=== PATIENT | female | born 1955 | race Caucasian/White ===

== ENCOUNTER 2024-06-07 14:58 | Inpatient (IN) | payer OTHER ==
[2024-06-07 15:47] LABS: Absolute Lymphocytes (CBC) 0.8 K/uL (0.7-4.9); Absolute Monocytes 0.5 K/uL (0.1-1.3); Absolute Neutrophil 7.9 K/uL (1.8-8.0); Basophils % 0.3 % (0-1.3); Hematocrit 35.4 % (36.0-45.0); Hemoglobin 11.3 g/dL (12.0-15.0); Lymphocytes % 8.5 % (15.3-44.8); MCH 25.5 pg (27.0-35.0); MCV 79.5 fL (80-100); MPV 6.6 fL (7.6-11.3); Monocytes % 5.2 % (3.3-12.3); Platelets 249 thou/uL (152-406); RBC Red Blood Cell Count 4.45 M/uL (3.86-4.86); Red Cell Distribution Width 16.6 % (12.1-15.2)
[2024-06-07 16:14] LABS: PT Prothrombin Time 11.2 SECONDS (9.4-12.5)
--- NOTE | 2024-06-07 16:14 | RAD REPORT ---
EXAM DESCRIPTION: RAD - Chest Single View - 06/07/2024 4:06 pm CLINICAL HISTORY: SOB Chest pain. COMPARISON: CHEST PA AND LAT 2 VIEW dated 06/07/2015; CHEST PA AND LAT 2 VIEW dated 10/17/2007 FINDINGS: Portable technique limits examination quality. Mildly prominent interstitial lung markings bilaterally are nonspecific. These may represent mild int erstitial pulmonary edema or interstitial infection/ viral infection. The heart is mildly prominent. Chronic blunting of the left costophrenic sulcus noted.
[2024-06-07 16:21] LABS: Sqamous Epithelial <5 /HPF (None Seen); Urine Bacteria None Seen /HPF (<20); Urine Bilirubin NEGATIVE (Negative); Urine Blood Trace (Negative); Urine Clarity Turbid (Clear); Urine Color Colorless (Yellow); Urine Crystals Unidentified Few /HPF (None Seen); Urine Culture Reflex Order NOT NEEDED; Urine Glucose 3+ (Negative); Urine Ketones NEGATIVE (Negative); Urine Microscopic Reflex YN ORDER UMIC; Urine Mucus Slight /HPF (None Seen); Urine Nitrite NEGATIVE (Negative); Urine Protein NEGATIVE (Negative); Urine RBC <5 /HPF (None Seen); Urine Urobilinogen Normal (Normal)
[2024-06-07 16:39] LABS: ALT/SGPT 29 U/L (13-56); AST/SGOT 17 U/L (15-37); Albumin 2.1 g/dL (3.4-5.0); Albumin/Globulin Ratio 0.5 (1.1-1.8); Alkaline Phosphatase 187 U/L (45-117); Anion Gap 10.2 mEq/L (5.0-15.0); BUN Blood Urea Nitrogen 62 mg/dL (7-18); Bicarbonate 24 mEq/L (21-32); Bilirubin Total 0.3 mg/dL (0.2-1.0); Globulin 4.3 g/dL (2.3-3.5); Glomerular Filtration Rate 27 ml/min (=/>90); Glucose Level 257 mg/dL (74-106); Magnesium 2.5 mg/dL (1.6-2.4); NT PRO-BNP 5532 pg/mL (<125); Potassium 4.2 mEq/L (3.5-5.1); Protein, Total 6.4 g/dL (6.4-8.2); Sodium Level 136 mEq/L (136-145); Troponin High Sensitivity 6.2 pg/mL (<58.9)
[2024-06-07 16:40] LABS: Bilirubin Direct < 0.2 mg/dL (0-0.2); Bilirubin Indirect, Calculated 0.1 mg/dL (0.2-0.8)
--- NOTE | 2024-06-07 18:25 | ER ---
Nurse's Notes [facility] Name: Mel Ly Age: 69 yrs Sex: Female : 1955 Arrival Date: 06/07/2024 Time: 14:58 Bed 16 Private MD: Diagnosis: Unspecified combined systolic (congestive) and diastolic (congestive) heart failure;Dyspnea;Acute kidney failure, unspecified Presentation: 06/07 15:12 Chief complaint: Patient states: Diagnosed with a UTI on Sunday and is taking Macrobid. cm10 Pt states that she started having pain to bilateral knees. Coronavirus screen: Client denies travel out of the [place] in the last 14 days. Ebola Screen: Patient denies travel to an Ebola-affected area in the 21 days before illness onset. No symptoms or risks identified at this time. Initial Sepsis Screen: Does the patient meet any 2 criteria? No. Patient's initial sepsis screen is negative. Does the patient have a suspected source of infection? No. Patient's initial sepsis screen is negative. Risk Assessment: Do you want to hurt yourself or someone else? Patient reports no desire to harm self or others. Onset of symptoms was June 07, 2024. 15:12 Method Of Arrival: EMS: [facility] 15:12 Acuity: BRITTANIE 3 cm10 Triage Assessment: 15:15 General: Appears in no apparent distress. uncomfortable, Behavior is calm, cooperative. cm10 Pain: Complains of pain in right leg and left leg Pain currently is 3 out of 10 on a pain scale. Neuro: No deficits noted. Level of Consciousness is awake, alert, obeys commands, Oriented to person, place, time, situation, Appropriate for age. Cardiovascular: No deficits noted. Patient's skin is warm and dry. Respiratory: No deficits noted. Airway is patent Respiratory effort is even, unlabored, Respiratory pattern is regular, symmetrical. Musculoskeletal: No deficits noted. Range of motion: intact in all extremities. Historical: - Allergies: 15:13 No Known Allergies; cm10 - Home Meds: 15:13 rosuvastatin oral [Active]; Lisinopril Oral [Active]; sertraline oral [Active]; cm10 - PMHx: 15:13 Hypertensive disorder; Hypercholesterolemia; cm10 - PSHx: 15:13 Total abdominal hysterectomy; Lung Resection; cm10 - Immunization history:: Adult Immunizations up to date. - Infectious Disease History:: Denies. - Social history:: Smoking status: Patient/guardian denies using tobacco, the patient reports quitting approximately 12 years ago. Screenin:[facility] ED Fall Risk Assessment (Adult) History of falling in the last 3 months, cm10 including since admission No falls in past 3 months (0 pts) Confusion or Disorientation No (0 pts) Intoxicated or Sedated No (0 pts) Impaired Gait No (0 pts) Mobility Assist Device Used No (0 pt) Altered Elimination No (0 pt) Score/Fall Risk Level 0 - 2 = Low Risk Oriented to surroundings, Maintained a safe environment, Hourly rounding (assess needs \T\ fall precautionary measures) done. Abuse screen: Denies threats or abuse. Denies injuries from another. Nutritional screening: No deficits noted. Tuberculosis screening: No symptoms or risk factors identified. Assessment: 15:15 General: Appears in no apparent distress. comfortable, Behavior is calm, cooperative. cm10 Neuro: No deficits noted. Level of Consciousness is awake, alert, obeys commands, Oriented to person, place, time, situation, Appropriate for age. Cardiovascular: Patient's skin is warm and dry. Respiratory: No deficits noted. Airway is patent Respiratory effort is even, unlabored, Respiratory pattern is regular, symmetrical. Derm: No deficits noted. Skin is healthy with good turgor. 18:56 Reassessment: Patient appears in no apparent distress at this time. No changes from cm10 previously documented assessment. Patient and/or family updated on plan of care and expected duration. Pain level reassessed. Patient is alert, oriented x 3, equal unlabored respirations, skin warm/dry/pink. Vital Signs: 15:00 BP 110 / 51; Pulse 64; Resp 16; Pulse Ox 100% ; cm10 15:12 BP 110 / 51; Pulse 62; Resp 15; Temp 97.1; Pulse Ox 100% on R/A; Weight 95.25 kg; cm10 Height 5 ft. 7 in. ; Pain 3/10; 15:30 BP 106 / 47; Pulse 61; Resp 21; Pulse Ox 100% on R/A; cm10 16:00 BP 115 / 43; Pulse 63; Resp 22; Pulse Ox 100% on R/A; cm10 16:30 BP 105 / 47; Pulse 60; Resp 16; Pulse Ox 100% on R/A; cm10 17:00 BP 113 / 44; Pulse 62; Resp 16; Pulse Ox 100% on R/A; cm10 17:30 BP 108 / 48; Pulse 67; Resp 16; Pulse Ox 100% ; cm10 18:00 BP 112 / 41; Pulse 67; Resp 16; Pulse Ox 100% on R/A; cm10 18:30 BP 109 / 47; Pulse 66; Resp 16; Pulse Ox 100% on R/A; cm10 15:12 Body Mass Index 32.89 (95.25 kg, 170.18 cm) cm10 15:12 Pain Scale: Adult cm10 ED Course: 15:01 Patient arrived in ED. cm10 15:02 Cherry Pickett, RN is Primary Nurse. cm10 15:03 Craig Murray PA is PHCP. cp 15:03 Craig Dan MD is Attending Physician. cp 15:13 Triage completed. cm10 15:15 Arm band placed on Patient placed in an exam room, on a stretcher. cm10 15:15 Client placed on continuous cardiac and pulse oximetry monitoring. NIBP monitoring cm10 applied. dietetic tech on. 15:40 Basic Metabolic Panel Sent. cm10 15:40 CBC with Diff Sent. cm10 15:40 LFT's Sent. cm10 15:40 Magnesium Sent. cm10 15:40 NT PRO-BNP Sent. cm10 15:40 PT-INR Sent. cm10 15:40 Troponin HS Sent. cm10 15:40 Urinalysis w/ reflexes Sent. cm10 15:41 Initial lab(s) drawn, by al, sent to lab. Urine collected: clean catch specimen, EKG cm10 done, by ED staff, reviewed by Craig SUE. Inserted saline lock: 20 gauge in left antecubital area, using aseptic technique. Blood collected. Flushed with 10 mL NS. 16:08 XRAY Chest (1 view) In Process Unspecified. EDMS 16:34 Patient has correct armband on for positive identification. Bed in low position. Call cm10 light in reach. Side rails up X2. Provided Education on: ER process and procedures.. 17:20 Warm blanket given. Assisted with bedpan. Linen changed. cm10 18:24 Dom Smith MD is Hospitalizing Provider. cp 18:52 Report faxed to 2nd floor at 1850. Called X2 to confirm received, no answer. cm10 19:39 No provider procedures requiring assistance completed. Patient admitted, IV remains in al5 place. Administered Medications: 19:35 Drug: Furosemide IVP 20 mg IVP once; give over 2 minutes Route: IVP; Site: left al5 antecubital; 19:35 Follow up: Response: No adverse reaction al5 Medication: 16:34 VIS not applicable for this client. cm10 Outcome: 18:25 Decision to Hospitalize by Provider. cp 19:39 Admitted to Med/surg accompanied by tech, via stretcher, room 210, with chart, al5 19:39 Condition: good 19:39 Instructed on the need for admit, 19:40 Patient left the ED. al5 Signatures: Dispatcher [employer] EDMS Craig Murray PA PA cp Martinez, Clarissa RN RN cm10 Vanda Jara RN RN al5
--- NOTE | 2024-06-07 18:25 | EDPHYS ---
Physician Documentation [facility] Name: Mel Ly Age: 69 yrs Sex: Female : 1955 Arrival Date: 06/07/2024 Time: 14:58 Bed 16 Private MD: ED Physician Craig Dan HPI: 06/07 15:10 This 69 yrs old Female presents to ER via EMS with complaints of Pain All Over. cp 15:10 The patient has shortness of breath with light activity. cp 15:10 Onset: The symptoms/episode began/occurred gradually. Associated signs and symptoms: cp Pertinent positives: bilateral knee pain, swelling of legs, Pertinent negatives: chest pain, productive cough, diaphoresis, fever, vomiting. Severity of symptoms: in the emergency department the symptoms are unchanged despite home interventions. Historical: - Allergies: 15:13 No Known Allergies; cm10 - Home Meds: 15:13 rosuvastatin oral [Active]; Lisinopril Oral [Active]; sertraline oral [Active]; cm10 - PMHx: 15:13 Hypertensive disorder; Hypercholesterolemia; cm10 - PSHx: 15:13 Total abdominal hysterectomy; Lung Resection; cm10 - Immunization history:: Adult Immunizations up to date. - Infectious Disease History:: Denies. - Social history:: Smoking status: Patient/guardian denies using tobacco, the patient reports quitting approximately 12 years ago. ROS: 15:15 Cardiovascular: Positive for edema, Negative for chest pain, palpitations, cp 15:15 Eyes: Negative for injury, pain, redness, and discharge, cp 15:15 Constitutional: Negative for body aches, chills, fever, poor PO intake, 15:15 ENT: Negative for drainage from ear(s), ear pain, sore throat, difficulty swallowing, difficulty handling secretions, 15:15 Respiratory: Positive for shortness of breath, on exertion. 15:15 Abdomen/GI: Negative for abdominal pain, vomiting, diarrhea, constipation, 15:15 Neuro: Negative for altered mental status, headache, 15:15 All other systems are negative, Exam: 15:20 Constitutional: The patient appears in no acute distress, alert, awake, cp non-diaphoretic, non-toxic, well developed, well nourished, 15:20 Head/Face: Normocephalic, atraumatic. cp 15:20 Eyes: Periorbital structures: appear normal, Conjunctiva: normal, no exudate, no injection, Sclera: no appreciated abnormality, Lids and lashes: appear normal, bilaterally, 15:20 ENT: External ear(s): are unremarkable, Nose: is normal, Mouth: Lips: moist, Oral mucosa: pink and intact, moist, Posterior pharynx: is normal, airway is patent, no erythema, no exudate, 15:20 Neck: ROM/movement: is normal, is supple, without pain, no range of motions limitations, 15:20 Chest/axilla: Inspection: normal, 15:20 Cardiovascular: Rate: normal, Rhythm: regular, Edema: ankle edema, that is mild, JVD: is not appreciated, 15:20 Respiratory: the patient does not display signs of respiratory distress, Respirations: labored breathing, intercostal retractions, are absent, Breath sounds: decreased breath sounds, that are mild, throughout, stridor, is not appreciated, wheezing: is not appreciated, 15:20 Abdomen/GI: Inspection: abdomen appears normal, Palpation: abdomen is soft and non-tender, in all quadrants, 15:20 Skin: no rash present. 15:20 Neuro: Orientation: to person, place \T\ time. Mentation: is normal, Motor: moves all fours, strength is normal, Sensation: is normal, 15:33 ECG was reviewed by the Attending Physician. cp Vital Signs: 15:00 BP 110 / 51; Pulse 64; Resp 16; Pulse Ox 100% ; cm10 15:12 BP 110 / 51; Pulse 62; Resp 15; Temp 97.1; Pulse Ox 100% on R/A; Weight 95.25 kg; cm10 Height 5 ft. 7 in. ; Pain 3/10; 15:30 BP 106 / 47; Pulse 61; Resp 21; Pulse Ox 100% on R/A; cm10 16:00 BP 115 / 43; Pulse 63; Resp 22; Pulse Ox 100% on R/A; cm10 16:30 BP 105 / 47; Pulse 60; Resp 16; Pulse Ox 100% on R/A; cm10 17:00 BP 113 / 44; Pulse 62; Resp 16; Pulse Ox 100% on R/A; cm10 17:30 BP 108 / 48; Pulse 67; Resp 16; Pulse Ox 100% ; cm10 18:00 BP 112 / 41; Pulse 67; Resp 16; Pulse Ox 100% on R/A; cm10 18:30 BP 109 / 47; Pulse 66; Resp 16; Pulse Ox 100% on R/A; cm10 15:12 Body Mass Index 32.89 (95.25 kg, 170.18 cm) cm10 15:12 Pain Scale: Adult cm10 MDM: 15:03 Patient medically screened. 18:30 Data reviewed: vital signs, nurses notes, lab test result(s), EKG, radiologic studies, cp plain films, and as a result, I will admit patient. 18:30 Consideration of Admission/Observation Patient was admitted/placed on observation. 18:30 I considered the following discharge prescriptions or medication management in the emergency department Medications were administered in the Emergency Department. See DEC. 18:30 Differential diagnosis: CHF exacerbation, Chronic Obstructive Pulmonary Disease cp Pneumothorax pulmonary edema, Pulmonary Embolism Sepsis Unstable Angina. Management of patient was discussed with the following: Hospitalist: DR Smith will admit after discussion. Independent interpretation of the following test(s) in the Emergency Department EKG: See my EKG interpretation above. Care significantly affected by the following chronic conditions: Hypertension. Counseling: I had a detailed discussion with the patient and/or guardian regarding the historical points, exam findings, and any diagnostic results supporting the discharge/admit diagnosis, lab results, radiology results, the need for further work-up and treatment in the hospital. 06/07 15:04 Order name: Urinalysis w/ reflexes; Complete Time: 17:27 06/07 15:04 Order name: Basic Metabolic Panel; Complete Time: 17: 06/07 17:27 Interpretation: Normal except: GLUC 257; BUN 62; CRE 2.02; GFR 27. 06/07 15:04 Order name: CBC with Diff; Complete Time: 19:30 06/07 15:04 Order name: LFT's; Complete Time: 17: 06/07 15:04 Order name: Magnesium; Complete Time: 17:27 06/07 15:04 Order name: NT PRO-BNP; Complete Time: 17:27 06/07 15:04 Order name: PT-INR; Complete Time: 17:27 06/07 15:04 Order name: Troponin HS; Complete Time: 17:27 06/07 18:12 Interpretation: Reviewed. cp 06/07 18:34 Order name: Urinalysis w/ reflexes EDNC 06/07 18:34 Order name: CBC with Automated Diff EDNC 06/07 18:34 Order name: CBC with Automated Diff; Complete Time: 19:30 EDMS 06/07 18:34 Order name: Comprehensive Metabolic Panel EDNC 06/07 18:34 Order name: Comprehensive Metabolic Panel; Complete Time: 19:30 EDMS 06/07 15:04 Order name: XRAY Chest (1 view); Complete Time: 17:27 cp 06/07 17:27 Order name: XRAY Knee RIGHT 3 view cp 06/07 18:48 Order name: RAD; Complete Time: 19:30 EDMS 06/07 18:48 Order name: RAD; Complete Time: 19:30 EDMS 06/07 18:34 Order name: CONS Physician Consult EDNC 06/07 15:04 Order name: Cardiac monitoring; Complete Time: 15:40 cp 06/07 15:04 Order name: EKG - Nurse/Tech; Complete Time: 15:40 cp 06/07 15:04 Order name: IV Saline Lock; Complete Time: 15:40 cp 06/07 15:04 Order name: Labs collected and sent; Complete Time: 15:40 cp 06/07 15:04 Order name: O2 Per Protocol; Complete Time: 15:40 cp 06/07 15:04 Order name: O2 Sat Monitoring; Complete Time: 15:40 cp EC:33 Rate is 60 beats/min. Rhythm is regular. MA interval is normal. QRS interval is normal. cp QT interval is normal. T waves are Inverted in lead aVR. Interpreted by me. Reviewed by me. Administered Medications: 19:35 Drug: Furosemide IVP 20 mg IVP once; give over 2 minutes Route: IVP; Site: left al5 antecubital; 19:35 Follow up: Response: No adverse reaction al5 Disposition Summary: 06/07/24 18:25 Hospitalization Ordered Notes: Hospitalization Status: Inpatient Admission cp Provider: Dom Smith cp Location: Telemetry/MedSurg (Inpatient) cp Condition: Stable cp Problem: new cp Symptoms: have improved cp Bed/Room Type: Standard cp Room Assignment: 210(06/07/24 18:41) sp Diagnosis - Unspecified combined systolic (congestive) and diastolic (congestive) heart failure cp - Dyspnea cp - Acute kidney failure, unspecified cp Forms: - Medication Reconciliation Form cp - SBAR form cp - Leadership Thank You Letter cp Signatures: Dispatcher [employer] EDMS Ramya Lynch Corey, PA PA cp Martinez, Clarissa, RN RN cm10 Vanda Jara, RN RN al5 Corrections: (The following items were deleted from the chart) 15:05 15:05 Urinalysis+U.LAB.BRZ ordered. EDMS EDMS 15:05 15:05 BASIC METABOLIC PANEL+C.LAB.BRZ ordered. EDMS EDMS 15:05 15:05 CBC+H.LAB.BRZ ordered. EDMS EDMS 15:05 15:05 HEPATIC FUNCTION+C.LAB.BRZ ordered. EDMS EDMS 15:05 15:05 MAGNESIUM+C.LAB.BRZ ordered. EDMS EDMS 15:05 15:05 PROBNP+C.LAB.BRZ ordered. EDMS EDMS 15:05 15:05 PROTIME (+INR)+COAG.LAB.BRZ ordered. EDMS EDMS 15:05 15:05 Troponin High Sensitivity+C.LAB.BRZ ordered. EDMS EDMS 15:05 15:05 Chest Single View+RAD.RAD.BRZ ordered. EDMS EDMS 17:27 17:27 Knee Left 3 View+RAD.RAD.BRZ ordered. EDMS EDMS 17:27 17:27 Extrem Venous W Compression Yayo+US.RAD.BRZ ordered. EDMS EDMS 18:41 18:25 cp sp
[2024-06-07] MEDS ORDERED: ALBUTEROL 2.5 MG/3 ML NEB SOL NEB PRN (18:29)
[2024-06-07] MEDS ORDERED: ONDANSETRON 4 MG/2 ML VIAL IV PRN (18:29)
[2024-06-07] MEDS ORDERED: ACETAMINOPHEN 325 MG TABLET PO PRN (18:29)
--- NOTE | 2024-06-07 18:29 | P.HP ---
Certification for Inpatient Patient admitted to: Inpatient With expected LOS: >2 Midnights Practitioner: I am a practitioner with admitting privileges, knowledge of patient current condition, hospital course, and medical plan of care. Services: Services provided to patient in accordance with Admission requirements found in Title 42 Section 412.3 of the Code of Federal Regulations Patient History Date of Service: 06/07/24 Reason for admission: SOB History of Present Illness: 69 yo female with past medical history of Hypertension ,Hyperlipidemia , Lung Ca s/p Lobectomy came in with shortness of breath. Patient has been having Chest discomfort and shortness of breath which has been progressively worsening over the last 1 month , associated with lower extremity swelling. Denies any chest pain. No previous history of CAD. No previous history of CHF. Denies any fever or chills. No nausea vomiting or diarrhea. Patient was assessed in the ER and was found to have bilateral lower extremity swelling and elevated BNP and was admitted for further management. Allergies No Known Allergies Allergy (Unverified 06/07/24 19:56) Home medications list reviewed: Yes Home Medications: Acetaminophen [Tylenol] 650 mg PO Q4HP PRN 06/07/24 Doxycycline Hyclate 50 mg PO DAILYPRN PRN 06/07/24 Famotidine [Pepcid] 20 mg PO BIDP PRN 06/07/24 Ibuprofen 200 mg PO Q4HP PRN 06/07/24 Lisinopril [Zestril] 5 mg PO DAILY 06/07/24 Loratadine [Claritin] 10 mg PO DAILYPRN PRN 06/07/24 Rosuvastatin [Crestor] 10 mg PO DAILY 06/07/24 Sertraline [Zoloft] 150 mg PO DAILY 06/07/24 - Past Medical/Surgical History Past Medical History: Reviewed- Non-Contributory -: HTN, HLD Past Surgical History: Reviewed- Non-Contributory - Family History Family History: Reviewed- Non-Contributory - Social History Smoking Status: Never smoker Review of Systems 10-point ROS is otherwise unremarkable Physical Examination - Vital Signs Temperature: 97.2 F Blood Pressure: 110/50 Pulse: 64 Respirations: 18 Pulse Ox (%): 94 - Physical Exam General: Alert, In no apparent distress, Oriented x3 HEENT: Atraumatic, Normocephalic Neck: Supple, JVD not distended Respiratory: Normal air movement, Crackles/rales Cardiovascular: Regular rate/rhythm, Normal S1 S2 Capillary refill: <2 Seconds Gastrointestinal: Soft and benign, W/out hepatosplenomegaly Musculoskeletal: No clubbing, Swelling Integumentary: No significant lesion, No tenderness/swelling Neurological: Normal speech, Normal strength at 5/5 x4 extr, Cranial nerves 3-12 intact, Normal reflexes 2+ Lymphatics: No axilla or inguinal lymphadenopathy - Studies Laboratory Data (last 24 hrs) 06/07/24 06/07/24 06/07/24 15:37 15:37 15:37 WBC 9.20 Hgb 11.3 L Hct 35.4 L Plt Count 249 PT 11.2 INR 1.00 Sodium 136 Potassium 4.2 BUN 62 H Creatinine 2.02 H Glucose 257 H Magnesium 2.5 H Total Bilirubin 0.3 AST 17 ALT 29 Alkaline Phosphatase 187 H Assessment and Plan - Plan Acute on chronic CHF possibly systolic/diastolic Monitor closely on telemetry Started on aggressive diuresis X-ray findings consistent with CHF Oxygen supplementation PRN Continue home medications Titrate as needed Will obtain an echocardiogram Cardiology consult Acute kidney injury Renal parameters monitored Electrolytes monitor and replace accordingly Hypertension Antihypertensives titrated Continue home medications and titrate as needed Hyperlipidemia Continue statin Diabetes Insulin sliding scale Accu-Chek before every meal and at bedtime UTI Started on IV antibiotic Monitor cultures GI/DVT prophylaxis Advanced directive full code Discharge Plan: Home Plan to discharge in: 48 Hours - Advance Directives Does patient have a Living Will: No Does patient have a Durable POA for Healthcare: No - Code Status/Comfort Care Code Status: Full Code Time Spent Managing Pts Care (In Minutes): 48
[2024-06-07] MEDS: FUROSEMIDE 40 MG/4 ML VIAL IV SCH (18:33)
--- NOTE | 2024-06-07 18:47 | RAD REPORT ---
EXAM DESCRIPTION: RAD - Knee Right 3 View - 06/07/2024 6:40 pm CLINICAL HISTORY: PAIN COMPARISON: <Comparisons> FINDINGS: No fracture, dislocation or aggressive bone lesion. Trace suprapatellar fluid.
--- NOTE | 2024-06-07 18:48 | RAD REPORT ---
EXAM DESCRIPTION: RAD - Knee Left 3 View - 06/07/2024 6:40 pm CLINICAL HISTORY: PAIN COMPARISON: <Comparisons> FINDINGS: No fracture, dislocation or aggressive marrow pattern. Trace suprapatellar joint fluid. Mi ld edema in the region of the patella.
[2024-06-07] MEDS ORDERED: FUROSEMIDE 20 MG/ 2ML VIAL ONE (19:29)
--- NOTE | 2024-06-07 20:01 | RAD REPORT ---
EXAM DESCRIPTION: US - Extrem Venous W Compress Yayo - 06/07/2024 7:27 pm CLINICAL HISTORY: Pain;Swelling Bilateral leg edema and swelling. COMPARISON: <Comparisons> TECHNIQUE: Real-time sonographic interrogation of the left and right lower extremity deep venous sys tems was performed. FINDINGS: Normal compressibility, flow augmentation, phasic flow and spontaneous flow is identified in both the left and right lower extremity deep venous systems. IMPRESSION: No sonographic evidence of left or right lower extremity deep venous thrombosis.
[2024-06-07 22:00] LABS: Anisocytosis 1+; Blood Morphology Comment NOTED (NOT SEEN); Platelet Estimate ADEQ; Poikilocytosis 1+; White Blood Cell Scan OK (OK)
[2024-06-07] MEDS: HYDROCODONE/APAP 5/325 MG TAB PO PRN (22:28)
[2024-06-07] MEDS: FAMOTIDINE 20 MG TAB PO SCH (22:28)
[2024-06-07] MEDS ORDERED: GLUCAGON 1 MG/VIAL IM PRN (22:51)
[2024-06-08 06:35] LABS: Absolute Lymphocytes (CBC) 1.6 K/uL (0.7-4.9); Absolute Monocytes 0.6 K/uL (0.1-1.3); Absolute Neutrophil 5.4 K/uL (1.8-8.0); Basophils % 0.3 % (0-1.3); Hematocrit 33.4 % (36.0-45.0); Hemoglobin 10.7 g/dL (12.0-15.0); Lymphocytes % 21.1 % (15.3-44.8); MCH 25.3 pg (27.0-35.0); MCHC 31.9 g/dL (32.0-36.0); MCV 79.3 fL (80-100); MPV 6.5 fL (7.6-11.3); Monocytes % 7.8 % (3.3-12.3); Neutrophils % 70.8 % (41.7-73.7); Platelets 258 thou/uL (152-406); RBC Red Blood Cell Count 4.21 M/uL (3.86-4.86); Red Cell Distribution Width 16.5 % (12.1-15.2)
[2024-06-08 06:57] LABS: ALT/SGPT 24 U/L (13-56); Albumin/Globulin Ratio 0.5 (1.1-1.8); Alkaline Phosphatase 172 U/L (45-117); Anion Gap 8.1 mEq/L (5.0-15.0); BUN Blood Urea Nitrogen 53 mg/dL (7-18); Bicarbonate 25 mEq/L (21-32); Bilirubin Total 0.3 mg/dL (0.2-1.0); Globulin 4.2 g/dL (2.3-3.5); Glomerular Filtration Rate 37 ml/min (=/>90); Glucose Level 134 mg/dL (74-106); Potassium 4.1 mEq/L (3.5-5.1); Protein, Total 6.2 g/dL (6.4-8.2); Sodium Level 136 mEq/L (136-145)
[2024-06-08 07:04] LABS: AST/SGOT < 10 U/L (15-37)
--- NOTE | 2024-06-08 07:18 | P.PN ---
Date of Service: 06/08/24 subjective Admitted with shortness of breath, has a noted CHF exacerbation, echo pending 100% on room air Review of Systems 10-point ROS is otherwise unremarkable listed in HPI Physical Examination - Vital Signs Reviewed - Physical Exam General: Alert, In no apparent distress, Oriented x3 HEENT: Atraumatic, Normocephalic Neck: Supple, JVD not distended Respiratory: Normal air movement, unlabored Cardiovascular: Regular rate/rhythm, Normal S1 S2 Capillary refill: <2 Seconds Gastrointestinal: Soft and benign, W/out hepatosplenomegaly Musculoskeletal: No clubbing, Swelling Integumentary: No significant lesion, No tenderness/swelling Neurological: Normal speech, Normal strength at 5/5 x4 extr, Cranial nerves 3-12 intact, Normal reflexes 2+ Lymphatics: No axilla or inguinal lymphadenopathy Assessment and Plan - Plan Acute on chronic CHF possibly systolic/diastolic Elevated BNP Monitor closely on telemetry Started on aggressive diuresis X-ray findings consistent with CHF Oxygen supplementation PRN Continue home medications Titrate as needed Will obtain an echocardiogram Cardiology consult Troponin normal UTI Started on IV antibiotic Monitor cultures- Hemoglobin A1c, may have a node diagnosed diabetes Acute kidney injury Renal parameters monitored Electrolytes monitor and replace accordingly History of lung CA, Lobectomy O2 2 L keep sats greater than 90% Hypertension Antihypertensives titrated Continue home medications and titrate as needed Hyperlipidemia Continue statin Diabetes Insulin sliding scale Accu-Chek before every meal and at bedtime Microcytic anemia H&H Iron panel GI/DVT prophylaxis Advanced directive full code Discharge Plan: Home Plan to discharge in: 48 Hours - Advance Directives Does patient have a Living Will: No Does patient have a Durable POA for Healthcare: No - Code Status/Comfort Care Code Status: Full Code Time Spent Managing Pts Care (In Minutes): 35 <Shahida Franco - Last Filed: 06/08/24 14:46> Patient was seen and examined. Events of the last 24 hours have been noted. Spoke with with IVANIA regarding patient's clinical picture after evaluating and examining the patient independently. I performed a substantial part of the MDM during this patient's care today. I personally made or approved the documented management plan and acknowledge its risk of complications. I agree with the findings and documentation provided in the IVANIA's notes. Patient is clinically doing much better. Continue with Lasix. Patient's chest x-ray shows some pulmonary edema but will repeat in the morning. Echocardiogram pending. Patient clinically has improved and will anticipate discharge in the morning as long as respiratory status is stable and echocardiogram without any significant abnormalities. Continue with strict blood pressure and blood sugar control at this time. UA was unremarkable so do not need to continue these antibiotics. Urine analysis did not reveal any bacteria seen. Will repeat chest x-ray in the morning check echocardiogram. Check room air O2 sats. If clinically doing well then anticipate discharge in a.m. <Ruiz Lane - Last Filed: 06/09/24 02:49>
[2024-06-08] MEDS: INSULIN REGULAR (HUMAN) 100 UNIT/ML SQ SCH (07:30)
[2024-06-08] MEDS: ENOXAPARIN 30 MG/0.3 ML SQ SCH (08:55)
[2024-06-08] MEDS: CEFTRIAXONE 1,000 MG in NA CHLORIDE 0.9% 50 ML IVPB SCH (08:56)
[2024-06-08] MEDS: MORPHINE 4 MG/ML SYR IV PRN (10:53)
--- NOTE | 2024-06-08 14:54 | P.CNS ---
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 Allergies No Known Allergies Allergy (Unverified 06/07/24 19:56) Home medications list reviewed: Yes Home Medications: Acetaminophen [Tylenol] 650 mg PO Q4HP PRN 06/07/24 Doxycycline Hyclate 50 mg PO DAILYPRN PRN 06/07/24 Famotidine [Pepcid] 20 mg PO BIDP PRN 06/07/24 Ibuprofen 200 mg PO Q4HP PRN 06/07/24 Lisinopril [Zestril] 5 mg PO DAILY 06/07/24 Loratadine [Claritin] 10 mg PO DAILYPRN PRN 06/07/24 Rosuvastatin [Crestor] 10 mg PO DAILY 06/07/24 Sertraline [Zoloft] 150 mg PO DAILY 06/07/24 - Past Medical/Surgical History Diabetic: No -: HTN, HLD -: hld -: hysterectomy -: lung resection - Social History Place of Residence: Home Review of Systems 10-point ROS is otherwise unremarkable Physical Examination Temp Pulse Resp BP Pulse Ox 97.4 F 67 17 111/46 L 94 06/08/24 12:00 06/08/24 12:00 06/08/24 12:00 06/08/24 12:00 06/08/24 12:00 General: Alert, In no apparent distress HEENT: Atraumatic, PERRLA, Mucous membr. moist/pink, EOMI, Sclerae nonicteric Neck: Supple, 2+ carotid pulse no bruit, No LAD, Without JVD or thyroid abnormality Respiratory: Crackles/rales Cardiovascular: Regular rate/rhythm, Normal S1 S2, Edema Gastrointestinal: Normal bowel sounds, No tenderness Musculoskeletal: No tenderness Integumentary: No rashes Neurological: Normal gait, Normal speech, Normal tone, Normal affect Lymphatics: No axilla or inguinal lymphadenopathy Laboratory Data (last 24 hrs) 06/07/24 06/07/24 06/07/24 15:37 15:37 15:37 WBC 9.20 Hgb 11.3 L Hct 35.4 L Plt Count 249 PT 11.2 INR 1.00 Sodium 136 Potassium 4.2 BUN 62 H Creatinine 2.02 H Glucose 257 H Magnesium 2.5 H Total Bilirubin 0.3 AST 17 ALT 29 Alkaline Phosphatase 187 H - Problems (1) SOB (shortness of breath) Current Visit: Yes Status: Acute Plan: agree with IV diuresis monitor input and output and electrolytes get Echo in am. (2) HTN (hypertension) Current Visit: Yes Status: Acute Plan: BP is soft, continue to monitor.
[2024-06-09 06:33] LABS: Hematocrit 34.4 % (36.0-45.0); Hemoglobin 10.9 g/dL (12.0-15.0); MCH 25.2 pg (27.0-35.0); MCHC 31.8 g/dL (32.0-36.0); MCV 79.2 fL (80-100); MPV 6.4 fL (7.6-11.3); Platelets 269 thou/uL (152-406); RBC Red Blood Cell Count 4.34 M/uL (3.86-4.86); Red Cell Distribution Width 16.3 % (12.1-15.2)
[2024-06-09 07:19] LABS: Albumin 2.2 g/dL (3.4-5.0); Anion Gap 10.3 mEq/L (5.0-15.0); Magnesium 2.1 mg/dL (1.6-2.4); Phosphorus 5.6 mg/dL (2.5-4.9); Potassium 4.3 mEq/L (3.5-5.1)
--- NOTE | 2024-06-09 08:28 | RAD REPORT ---
EXAM DESCRIPTION[facility] [place] [facility]09/2024 4:42 am CLINICAL HISTORY: pneumonia COMPARISON: Chest Single View dated 06/07/2024; CHEST PA AND LAT 2 VIEW dated 06/07/2015 TECHNIQUE: Portable AP view of the chest. FINDINGS: The lungs are clear apart from stable left basilar atelectasis or scarring. No pneumothor ax or effusion. The cardiomediastinal contours are unchanged with postsurgical changes at the left hi lum, stable. IMPRESSION: No acute cardiopulmonary process.
--- NOTE | 2024-06-09 12:40 | EKG ---
Test Date: 2024-06-07 Test Time: 15:26:17 Photographers' Model: UX MEASUREMENT RESULTS: Intervals: Rate: 60 VT: 154 QRSD: 90 QT: 416 QTc: 416 [place]: P: 29 VT: 154 QRS: 25 T: 28 INTERPRETIVE STATEMENTS: Normal sinus rhythm Normal ECG Compared to ECG 05/30/2022 10:48:55 Sinus bradycardia no longer present Electronically Signed On 06-09-24 12:38:33 CDT by Ko Gómez
--- NOTE | 2024-06-09 13:42 | P.PN ---
Subjective Date of Service: 06/09/24 Chief Complaint: SOB Subjective: No new changes, No C/O voiced, Tolerating diet, Ambulating, Improving Review of Systems 10-point ROS is otherwise unremarkable Physical Examination - Vital Signs Temperature: 97.8 F Blood Pressure: 131/53 Pulse: 69 Respirations: 14 Pulse Ox (%): 98 - Physical Exam General: Alert, In no apparent distress HEENT: Atraumatic, PERRLA, EOMI Neck: Supple, JVD not distended Respiratory: Clear to auscultation bilaterally, Normal air movement Cardiovascular: Regular rate/rhythm, Normal S1 S2 Gastrointestinal: Normal bowel sounds, No tenderness Musculoskeletal: No tenderness Integumentary: No rashes Neurological: Normal speech, Normal tone, Normal affect Lymphatics: No axilla or inguinal lymphadenopathy - Studies Medications List Reviewed: Yes Assessment And Plan - Current Problems (Diagnosis) (1) SOB (shortness of breath) Current Visit: Yes Status: Acute Plan: switch lasix to 40 mg po daily Echo shows normal EF, Grade I DD. follow up in clinic as outpatient (2) HTN (hypertension) Current Visit: Yes Status: Acute Plan: BP is soft, continue to monitor.
--- NOTE | 2024-06-09 14:53 | P.DS ---
Admission Date: 06/07/24 Discharge Date: 06/09/24 Disposition: ROUTINE DISCHARGE Discharge Condition: GOOD Reason for Admission: SOB Brief History of Present Illness: 69 yo female with past medical history of Hypertension ,Hyperlipidemia , Lung Ca s/p Lobectomy came in with shortness of breath. Patient has been having Chest discomfort and shortness of breath which has been progressively worsening over the last 1 month , associated with lower extremity swelling. Denies any chest pain. No previous history of CAD. No previous history of CHF. Denies any fever or chills. No nausea vomiting or diarrhea. Patient was assessed in the ER and was found to have bilateral lower extremity swelling and elevated BNP and was admitted for further management. Hospital Course: Pt is a 69 yo female with past medical history of Hypertension ,Hyperlipidemia , Lung Ca s/p Lobectomy who presented with shortness of breath and chest discomfort for 1 month. Pt also had leg edema. Lab studies showed elevated BNP. We admitted pt for acute on chronic CHF. We gave lasix and monitored I/O.Cardiology evaluated pt and recommended lasix 40mg po daily and advised her to follow up in clinic. We also gave rocephin for UTI. We advised pt to take cefdinir 300mg po BID for 3 days. DARRELL improved with IVF. We continued home meds for other chronic medical problems. Pt was in NAD prior to discharge. Vital Signs/Physical Exam: Temp Pulse Resp BP Pulse Ox 97.8 F 69 14 131/53 L 98 06/09/24 13:42 06/09/24 13:42 06/09/24 13:42 06/09/24 13:42 06/09/24 13:42 Laboratory Data at Discharge: WBC 7.80 thou/uL (4.3-10.9) 06/09/24 05:59 Hgb 10.9 g/dL (12.0-15.0) L 06/09/24 05:59 Hct 34.4 % (36.0-45.0) L 06/09/24 05:59 Plt Count 269 thou/uL (152-406) 06/09/24 05:59 PT 11.2 SECONDS (9.4-12.5) 06/07/24 15:37 INR 1.00 06/07/24 15:37 Sodium 136 mEq/L (136-145) 06/09/24 05:59 Potassium 4.3 mEq/L (3.5-5.1) 06/09/24 05:59 BUN 42 mg/dL (7-18) H 06/09/24 05:59 Creatinine 1.35 mg/dL (0.55-1.02) H 06/09/24 05:59 Glucose 162 mg/dL (74-106) H 06/09/24 05:59 Phosphorus 5.6 mg/dL (2.5-4.9) H 06/09/24 05:59 Magnesium 2.1 mg/dL (1.6-2.4) 06/09/24 05:59 Total Bilirubin 0.3 mg/dL (0.2-1.0) 06/08/24 06:02 AST < 10 U/L (15-37) L 06/08/24 06:02 ALT 24 U/L (13-56) 06/08/24 06:02 Alkaline Phosphatase 172 U/L (45-117) H 06/08/24 06:02 Home Medications: Acetaminophen [Tylenol] 650 mg PO Q4HP PRN 06/07/24 Famotidine [Pepcid*] 20 mg PO BIDP PRN 06/07/24 Ibuprofen 200 mg PO Q4HP PRN 06/07/24 Lisinopril [Zestril] 5 mg PO DAILY 06/07/24 Loratadine [Claritin*] 10 mg PO DAILYPRN PRN 06/07/24 Rosuvastatin [Crestor*] 10 mg PO DAILY 06/07/24 Sertraline [Zoloft*] 150 mg PO DAILY 06/07/24 Cefdinir [Cefdinir*] 300 mg PO BID 3 Days #6 cap 06/09/24 Furosemide [Lasix*] 40 mg PO DAILY 60 Days #60 tab 06/09/24 New Medications: Cefdinir [Cefdinir*] 300 mg PO BID 3 Days #6 cap Furosemide [Lasix*] 40 mg PO DAILY 60 Days #60 tab Physician Discharge Instructions: Continue ad becka activity as tolerated. take lasix 40mg po daily and Cefdinir 300mg po BID. Follow up with PCP and Cardiology within 1 - 2 weeks. Diet: AHA Activity: Ad becka Followup: Tamara Faith MD [Primary Care Provider] -
[2024-06-09 18:02] VITALS: BMI 32.5
[2024-06-09 22:38] LABS: Specific Gravity 1.018 (1.005-1.030); Sqamous Epithelial <5 /HPF (None Seen); Urine Bacteria None Seen /HPF (<20); Urine Bilirubin NEGATIVE (Negative); Urine Blood Negative (Negative); Urine Clarity Turbid (Clear); Urine Color Light-Yellow (Yellow); Urine Crystals Unidentified Few /HPF (None Seen); Urine Culture Reflex Order NOT NEEDED; Urine Glucose NEGATIVE (Negative); Urine Ketones NEGATIVE (Negative); Urine Microscopic Reflex YN ORDER UMIC; Urine Nitrite NEGATIVE (Negative); Urine Protein NEGATIVE (Negative); Urine RBC <5 /HPF (None Seen); Urine Urobilinogen Normal (Normal); Urine WBC <5 /HPF (<5); Urine pH 5.5 (5.0-7.0)
--- NOTE | 2024-06-09 22:41 | P.PN ---
Subjective Date of Service: 06/09/24 Chief Complaint: SOB Pt is resting comfortably in bed. Pt is getting lasix . Pt complains of weakness, We consulted PT. No other complaints Review of Systems General: Unremarkable Eyes: Unremarkable ENT: Unremarkable Respiratory: Unremarkable Cardiovascular: Unremarkable Gastrointestinal: Unremarkable Genitourinary: Unremarkable Musculoskeletal: Unremarkable Integumentary: Unremarkable Neurological: Unremarkable Lymphatics: Unremarkable Physical Examination - Vital Signs Temperature: 97.6 F Blood Pressure: 130/59 Pulse: 64 Respirations: 16 Pulse Ox (%): 98 - Physical Exam General: Alert, In no apparent distress, Oriented x3 HEENT: Atraumatic, Normocephalic Neck: Supple, 2+ carotid pulse no bruit, JVD not distended Respiratory: Clear to auscultation bilaterally, Normal air movement Cardiovascular: No edema, Normal pulses, Regular rate/rhythm Capillary refill: <2 Seconds Gastrointestinal: Normal bowel sounds, Soft and benign, Non-distended Musculoskeletal: No clubbing, No swelling, No contractures Integumentary: No rashes, No breakdown, No significant lesion Neurological: Normal gait, Normal speech, Normal strength at 5/5 x4 extr - Studies Medications List Reviewed: Yes Assessment And Plan - Plan Acute on chronic CHF possibly systolic/diastolic: Continue lasix, strict I/O and daily weight. Cardiology is following. UTI: Continue abx and f/u urine cx. New onset Diabetes: A1c is 6.5. Will continue accuchek, SSI and ADA diet. Acute kidney injury: Continue IVF, avoid nephrotoxins and monitor renal function. History of lung CA: s/p lobectomy. noted Hypertension: continue home med. Hyperlipidemia: statin Microcytic anemia: Monitor H/H GI ppx: protonix. DVT ppx: SCD Dispo: Pending hospital course.
[2024-06-10 07:10] LABS: Absolute Lymphocytes (CBC) 1.9 K/uL (0.7-4.9); Absolute Monocytes 0.7 K/uL (0.1-1.3); Absolute Neutrophil 5.3 K/uL (1.8-8.0); Basophils % 0.4 % (0-1.3); Hematocrit 35.6 % (36.0-45.0); Hemoglobin 11.5 g/dL (12.0-15.0); Lymphocytes % 23.8 % (15.3-44.8); MCH 25.6 pg (27.0-35.0); MCHC 32.2 g/dL (32.0-36.0); MCV 79.5 fL (80-100); MPV 6.1 fL (7.6-11.3); Monocytes % 9.4 % (3.3-12.3); Neutrophils % 66.4 % (41.7-73.7); Platelets 281 thou/uL (152-406); RBC Red Blood Cell Count 4.48 M/uL (3.86-4.86)
--- NOTE | 2024-06-10 07:20 | ECHO ---
HEIGHT: 5 ft 7 in WEIGHT: 209 lb 1.6 oz DATE OF STUDY: 06/09/[address]: Jacob Smith DO 2-DIMENSIONAL: YES M.MODE: YES DOPPLER: YES COLOR FLOW: YES TDS: PORTABLE: YES DEFINITY: BUBBLE STUDY: DIAGNOSIS: CONGESTIVE HEART FAILURE CARDIAC HISTORY: CATHERIZATION: NO SURGERY: NO PROSTHETIC VALVE: NO PACEMAKER: NO MEASUREMENTS (cm) DIASTOLIC (NORMALS) SYSTOLIC (NORMALS) IVSd 1.1 (0.6-1.2) LA Diam 2.8 (1.9-4.0) LVEF 60-65% LVIDd 4.7 (3.5-5.7) LVIDs 3.2 (2.0-3.5) %FS 31% LVPWd 1.0 (0.6-1.2) Ao Diam 2.6 (2.0-3.7) 2 DIMENSIONAL ASSESSMENT: RIGHT ATRIUM: NORMAL LEFT ATRIUM: NORMAL RIGHT VENTRICLE: NORMAL LEFT VENTRICLE: NORMAL TRICUSPID VALVE: TRACE TRICUSPID REGURGITATION MITRAL VALVE: TRACE MITRAL REGURGITATION PULMONIC VALVE: NORMAL AORTIC VALVE: NORMAL PERICARDIAL EFFUSION: NONE AORTIC ROOT: NORMAL LEFT VENTRICULAR WALL MOTION: NORMAL DOPPLER/COLOR FLOW: GRADE I DIASTOLIC DYSFUNCTION COMMENTS: 1. NORMAL LEFT VENTRICULAR SYSTOLIC FUNCTION, EJECTION FRACTION 60-65%, NORMAL WALL MOTION 2. GRADE I DIASTOLIC DYSFUNCTION 3. MILD ELEVATED FILLING PRESSURE (RIGHT ATRIUM 10-15 mmHg) TECHNOLOGIST: OMER MOHR
[2024-06-10 07:30] LABS: Anion Gap 8.2 mEq/L (5.0-15.0); Potassium 4.2 mEq/L (3.5-5.1)
[2024-06-10] MEDS: FUROSEMIDE 40 MG TABLET PO SCH (08:05)
[2024-06-10 08:32] VITALS: O2SAT 97
--- NOTE | 2024-06-10 11:54 | P.DS ---
Admission Date: 06/07/24 Discharge Date: 06/10/24 Disposition: ROUTINE DISCHARGE Discharge Condition: GOOD Reason for Admission: SOB Brief History of Present Illness: 69 yo female with past medical history of Hypertension ,Hyperlipidemia , Lung Ca s/p Lobectomy came in with shortness of breath. Patient has been having Chest discomfort and shortness of breath which has been progressively worsening over the last 1 month , associated with lower extremity swelling. Denies any chest pain. No previous history of CAD. No previous history of CHF. Denies any fever or chills. No nausea vomiting or diarrhea. Patient was assessed in the ER and was found to have bilateral lower extremity swelling and elevated BNP and was admitted for further management. Hospital Course: Pt is a 69 yo female with past medical history of Hypertension ,Hyperlipidemia , Lung Ca s/p Lobectomy who presented with shortness of breath and chest discomfort for 1 month. Pt also had leg edema. Lab studies showed elevated BNP. We admitted pt for acute on chronic CHF. We gave lasix and monitored I/O.Cardiology evaluated pt and recommended lasix 40mg po daily and advised her to follow up in clinic. We also gave rocephin for UTI. We advised pt to take cefdinir 300mg po BID for 3 days. DARRELL improved with IVF. We continued home meds for other chronic medical problems. Her discharge was delayed because pt complained of feeling weak. We consulted Physical therapist and pt worked well with PT. She was in NAD prior to discharge. Vital Signs/Physical Exam: Temp Pulse Resp BP Pulse Ox 97.0 F 65 15 118/52 L 97 06/10/24 08:00 06/10/24 08:05 06/10/24 11:01 06/10/24 08:05 06/10/24 11:01 Laboratory Data at Discharge: WBC 8.00 thou/uL (4.3-10.9) 06/10/24 06:42 Hgb 11.5 g/dL (12.0-15.0) L 06/10/24 06:42 Hct 35.6 % (36.0-45.0) L 06/10/24 06:42 Plt Count 281 thou/uL (152-406) 06/10/24 06:42 PT 11.2 SECONDS (9.4-12.5) 06/07/24 15:37 INR 1.00 06/07/24 15:37 Sodium 136 mEq/L (136-145) 06/10/24 06:42 Potassium 4.2 mEq/L (3.5-5.1) 06/10/24 06:42 BUN 32 mg/dL (7-18) H 06/10/24 06:42 Creatinine 1.19 mg/dL (0.55-1.02) H 06/10/24 06:42 Glucose 172 mg/dL (74-106) H 06/10/24 06:42 Phosphorus 5.6 mg/dL (2.5-4.9) H 06/09/24 05:59 Magnesium 2.1 mg/dL (1.6-2.4) 06/09/24 05:59 Total Bilirubin 0.3 mg/dL (0.2-1.0) 06/08/24 06:02 AST < 10 U/L (15-37) L 06/08/24 06:02 ALT 24 U/L (13-56) 06/08/24 06:02 Alkaline Phosphatase 172 U/L (45-117) H 06/08/24 06:02 Home Medications: Acetaminophen [Tylenol] 650 mg PO Q4HP PRN 06/07/24 Famotidine [Pepcid*] 20 mg PO BIDP PRN 06/07/24 Ibuprofen 200 mg PO Q4HP PRN 06/07/24 Lisinopril [Zestril] 5 mg PO DAILY 06/07/24 Loratadine [Claritin*] 10 mg PO DAILYPRN PRN 06/07/24 Rosuvastatin [Crestor*] 10 mg PO DAILY 06/07/24 Sertraline [Zoloft*] 150 mg PO DAILY 06/07/24 Cefdinir [Cefdinir*] 300 mg PO BID 3 Days #6 cap 06/09/24 Furosemide [Lasix*] 40 mg PO DAILY 60 Days #60 tab 06/09/24 New Medications: Cefdinir [Cefdinir*] 300 mg PO BID 3 Days #6 cap Furosemide [Lasix*] 40 mg PO DAILY 60 Days #60 tab Physician Discharge Instructions: Continue ad becka activity as tolerated. take lasix 40mg po daily and Cefdinir 300mg po BID. Follow up with PCP and Cardiology within 1 - 2 weeks. Diet: AHA Activity: Ad becka Followup: Ko Gómez MD [ACTIVE - CAN ADMIT] - 1-2 Weeks Tamara Faith MD [Primary Care Provider] - 1-2 Weeks
[2024-06-10 13:50] VITALS: BP 121/55; TEMP 97.1
== END 2024-06-10 14:16 | disposition home or self-care (01) | DRG 291 ==
LOC: ER 14:58 → ERHOLD 18:29 → 2ND 19:11
PROVIDERS: ADMIT Family Medicine; ATTEND Hospitalist
DX: I11.0 Hypertensive heart disease with heart failure (principal); I50.43 Acute on chronic combined systolic (congestive) and diastolic (congestive) heart failure; N17.9 Acute kidney failure, unspecified; N39.0 Urinary tract infection, site not specified; D50.9 Iron deficiency anemia, unspecified; M25.562 Pain in left knee; M25.561 Pain in right knee; E78.00 Pure hypercholesterolemia, unspecified; Z90.2 Acquired absence of lung [part of]; Z90.710 Acquired absence of both cervix and uterus; Z79.899 Other long term (current) drug therapy; Z85.118 Personal history of other malignant neoplasm of bronchus and lung
CPT/HCPCS: 36415; 71045; 80048; 80053; 80069; 80076; 81001; 82947; 83036; 83735; 83880; 84484; 85025; 85027; 85610; 93005; 93306; 93970; 94760; 94762; 96374; 97116; 97161; 97530; 99285; J0696; J1650; J1940

== ENCOUNTER 2024-08-25 07:15 | Day surgery (SDC) | payer OTHER ==
[2024-08-21 14:04] LABS: Absolute Basophils 0.1 K/uL (0-0.5); Absolute Lymphocytes (CBC) 1.7 K/uL (0.7-4.9); Absolute Monocytes 0.9 K/uL (0.1-1.3); Absolute Neutrophil 8.7 K/uL (1.8-8.0); Basophils % 0.4 % (0-1.3); Hematocrit 36.2 % (36.0-45.0); Hemoglobin 11.6 g/dL (12.0-15.0); MCH 26.4 pg (27.0-35.0); MCHC 32.1 g/dL (32.0-36.0); MCV 82.3 fL (80-100); MPV 6.5 fL (7.6-11.3); Monocytes % 7.9 % (3.3-12.3); Neutrophils % 76.7 % (41.7-73.7); Platelets 245 thou/uL (152-406); Red Cell Distribution Width 15.8 % (12.1-15.2)
[2024-08-21 14:17] LABS: PT Prothrombin Time 11.5 SECONDS (9.4-12.5); PTT, Activated Partial Thromb 30.6 SECONDS (24.3-36.9); Protime INR 1.03
[2024-08-21 14:18] LABS: Anion Gap 7.4 mEq/L (5.0-15.0); Potassium 4.4 mEq/L (3.5-5.1)
[2024-08-21 14:35] LABS: Platelet Estimate ADEQ; White Blood Cell Scan OK (OK)
[2024-08-21 14:36] LABS: Anisocytosis 1+; Blood Morphology Comment NOTED (NOT SEEN); Microcytosis 1+
--- NOTE | 2024-08-22 15:09 | EKG ---
Test Date: 2024-08-21 Test Time: 14:47:45 Tape Cutter: JACKSON MEASUREMENT RESULTS: Intervals: Rate: 65 OR: 154 QRSD: 86 QT: 388 QTc: 403 [place]: P: 68 OR: 154 QRS: 49 T: 56 INTERPRETIVE STATEMENTS: Normal sinus rhythm Normal ECG Compared to ECG 06/07/2024 15:26:17 No significant changes Electronically Signed On 08-22-24 15:07:14 FRAMING MILL SUPERVISOR by Ko Gómez
[2024-08-25] MEDS ORDERED: NA CHLORIDE 0.9% 500 ML ONE (07:50)
[2024-08-25] MEDS ORDERED: LIDOCAINE 1% 20 ML MDV ONE (08:02)
[2024-08-25] MEDS ORDERED: HEPA 1000U/500MLS 2,000 UNIT/1,000 ML BAG IV ONE (08:02)
[2024-08-25] MEDS ORDERED: FENTANYL CITR 100 MCG/2 ML ONE (08:03)
[2024-08-25] MEDS ORDERED: MIDAZOLAM HCL 2 MG/2 ML INJ ONE (08:03)
[2024-08-25] MEDS ORDERED: ATROPINE SULF 1 MG/10 ML SYR IV ONE (08:03)
[2024-08-25 11:37] VITALS: BP 102/42; O2SAT 99
--- NOTE | 2024-08-25 23:14 | OP ---
Date of Procedure: 08/25/2024 Surgeon: Ko Gómez Procedure Performed: Bilateral carotid angiograms. Indication For Procedure: Dizziness with abnormal carotid duplex. Complications: None. Estimated Blood Loss: Less than 50 cc. Access: Right common femoral artery, closed by Mynx. Sedation Time: 20 minutes with 1 of Versed and 25 fentanyl. Description Of Procedure: After risks, benefits, and alternatives were explained to the patient, the patient agreed to proceed with the procedure and signed informed consent. The patient was [facility] to the wood and wood products labourer, prepped and draped in sterile fashion. Time-out was performed. Sedation was ad ministered. Next, the right common femoral artery ultrasound-guided micropuncture technique access w as obtained. A 5-Georg[place] sheath was inserted. Next, Mcdonald 1 catheter was advanced over J-wire to the aortic root. The catheter was used for selective angiogram of the right and left carotid arteries. At the end of procedure, catheter was removed over a J-wire. Sheath was removed. Mynx was applied. Hemostasis was achieved and the patient was moved back to recovery in stable condition. Findings: 1.Right common carotid artery: Patent. 2.Right internal carotid artery: Proximal 80% disease, then mild luminal irregularities. 3.Right external carotid artery: Patent. 4.Left common carotid artery: Patent. 5.Left internal carotid artery: Patent. 6.Left external carotid artery: Patent. Assessment And Plan: 1.Significant right internal carotid artery disease. 2.Normal left internal carotid artery. The plan will be to refer to Vascular Surgery for right carotid endarterectomy. DYLAN/PAPITO Voice ID: [id number] Report ID: [id number]
== END 2024-08-25 11:38 | disposition home or self-care (01) ==
LOC: CCL 07:15
PROVIDERS: ATTEND Internal Medicine Interventional Cardiology
DX: I65.21 Occlusion and stenosis of right carotid artery (principal); I11.0 Hypertensive heart disease with heart failure; I50.32 Chronic diastolic (congestive) heart failure; E78.2 Mixed hyperlipidemia; E11.9 Type 2 diabetes mellitus without complications; Z79.899 Other long term (current) drug therapy
CPT/HCPCS: 93005; 85025; 80048; 36415; 85610; 82947; 85730; 36222; 76937; C1893; J2003; J2250; J3010; J7040; C1760; 99152; 99153; J0461

== ENCOUNTER 2025-07-16 07:28 | Day surgery (SDC) | payer OTHER ==
[2025-07-14 15:27] LABS: Absolute Lymphocytes (CBC) 0.5 K/uL (0.7-4.9); Hematocrit 34.1 % (36.0-45.0); Hemoglobin 10.7 g/dL (12.0-15.0); MCH 22.9 pg (27.0-35.0); MCHC 31.5 g/dL (32.0-36.0); MCV 72.8 fL (80-100); MPV 6.3 fL (7.6-11.3); Nucleated RBC Absolute Count 0.0 (0-0); Nucleated Red Blood Cells % 0.1 % (0-0); RBC Red Blood Cell Count 4.69 M/uL (3.86-4.86); White Blood Count 6.60 thou/uL (4.3-10.9)
[2025-07-14 15:36] LABS: PT Prothrombin Time 12.6 SECONDS (10-13.0); PTT, Activated Partial Thromb 28.2 SECONDS (27.2-37.4); Protime INR 1.12
[2025-07-14 15:58] LABS: Anion Gap 9.9 mEq/L (5.0-15.0); BUN Blood Urea Nitrogen 19.0 mg/dL (7-18); Glucose Level 254.0 mg/dL (74-106); Potassium 3.9 mEq/L (3.5-5.1)
--- NOTE | 2025-07-14 19:15 | RAD REPORT ---
EXAMINATION: TWO VIEW CHEST XR CLINICAL INDICATION: Female, 70 years old. Hypertension. pre procedure TECHNIQUE: 2 view radiographs of the chest were performed. COMPARISON: 06/09/2024 FINDINGS: The lungs are well inflated and clear. No pneumothorax or sizable effusion. The heart is normal in si ze. Mediastinal contours are unremarkable. IMPRESSION: No acute or significant abnormalities.
[2025-07-16] MEDS ORDERED: FENTANYL CITR 100 MCG/2 ML ONE (08:09)
[2025-07-16] MEDS ORDERED: NA CHLORIDE 0.9% 500 ML ONE (08:09)
[2025-07-16] MEDS ORDERED: MIDAZOLAM HCL 2 MG/2 ML INJ ONE (08:09)
[2025-07-16] MEDS ORDERED: HEPA 1000U/500MLS 2,000 UNIT/1,000 ML BAG IV ONE (08:11)
[2025-07-16] MEDS ORDERED: LIDOCAINE 1% 20 ML MDV ONE (08:11)
[2025-07-16] MEDS ORDERED: ATROPINE SULF 1 MG/10 ML SYR IV ONE (08:12)
[2025-07-16 11:31] VITALS: BP 140/53; O2SAT 99
--- NOTE | 2025-07-16 20:16 | OP ---
Date of Procedure: 07/16/2025 Surgeon: Ko Gómez Procedure Performed: Bilateral carotid angiogram. Indication For Procedure: Prior history of carotid endarterectomy with abnormal carotid duplex. Complications: None. Estimated Blood Loss: Less than 50 cc. Access: Right common femoral artery, closed by Mynx. Sedation Time: 20 minutes with 1 of Versed and 25 of fentanyl. Description Of Procedure: After risks, benefits, and alternatives were explained to the patient, the patient agreed to proceed with procedure and signed informed consent. The patient was brought back to the film laboratory technician, prepped and draped in sterile fashion. Time-out was performed. Sedation was admini stered. Next, right common femoral artery access was obtained using ultrasound-guided micropuncture technique. Mcdonald 1 catheter was advanced through the aortic root for selective angiogram, but the oswaldo ateral carotid angiogram was done using the same catheter. At the end of the procedure, catheter was removed over a J-wire. Sheath was removed. Mynx was applied. Hemostasis was achieved and the balta ent was moved back to recovery in stable condition. Findings: 1. Right common carotid artery patent. 2. Right internal carotid artery, there is a site of endarterectomy that is dilated, then followed by 99% disease in the right internal carotid artery. Then, mild luminal irregularities. 3. Left common carotid artery patent. 4. Left internal carotid artery patent. Assessment And Plan: Significant right internal carotid artery disease. The patient will be sent to Vascular Surgery today with possible redo endarterectomy tomorrow. MATT Voice ID: [id number] Report ID: [id number]
== END 2025-07-16 11:20 | disposition home health service (06) ==
LOC: CCL 07:28
PROVIDERS: ATTEND Internal Medicine Interventional Cardiology
DX: I65.21 Occlusion and stenosis of right carotid artery (principal); I11.0 Hypertensive heart disease with heart failure; I50.32 Chronic diastolic (congestive) heart failure; E78.2 Mixed hyperlipidemia; Z79.02 Long term (current) use of antithrombotics/antiplatelets; Z79.82 Long term (current) use of aspirin; Z79.899 Other long term (current) drug therapy
CPT/HCPCS: 93005; 85025; 80048; 36415; 85610; 82947; 85730; 71046; 36222; 76937; C1893; Q9966; J2003; J2250; J3010; J1644; J7040; C1760; 99152; J0461